=== PATIENT | female | born 1970 | race American Indian/Alaskan Native ===

== ENCOUNTER 2016-11-26 09:34 | Emergency (ER) | payer MEDICAID ==
[2016-11-26] MEDS ORDERED: TORADOL IM ONE (14:58)
[2016-11-26] MEDS ORDERED: ROBAXIN PO ONE ×2 (15:04→15:30)
--- NOTE | 2016-11-26 15:05 | Emergency Department Report ---
ED General Adult HPI - General Chief complaint: Back Pain/Injury Stated complaint: LEGS HURT Time Seen by Provider: 11/26/16 14:52 Source: patient Mode of arrival: Ambulatory Limitations: No Limitations - History of Present Illness Initial comments: 46-year-old female with no significant past medical history, patient presents with right flank pain, chest wall 1 week. She has been coughing and this has triggered her chronic right flank pain. Pain hurts with movement and taking a deep breath. -: Gradual, week(s) (1, problems is progressively getting worse) Location: chest (right flank pain posteriorly) Radiation: non-radiation Severity scale (0 -10): 7 Quality: aching Consistency: constant Improves with: none Worsens with: movement, other (taking a deep breath) Associated Symptoms: chest pain (right flank posteriorly), shortness of breath. denies: malaise, nausea/vomiting, rash, seizure - Related Data Previous Rx's Medication Instructions Recorded Last Taken Type Miscellaneous Medical Supply 1 each MC PRN #1 each 06/27/15 Unknown Rx [[place]] Naproxen [Naprosyn TAB] 500 mg PO BID #20 tablet 02/27/16 Unknown Rx Methocarbamol [Robaxin TAB] 1,500 mg PO Q8H #40 tablet 11/26/16 Unknown Rx traMADol [Ultram] 50 mg PO Q6HR PRN #16 tablet 11/26/16 Unknown Rx Allergies Allergy/AdvReac Type Severity Reaction Status Date / Time No Known Allergies Allergy Verified 11/26/16 15:01 ED Review of Systems ROS: Stated complaint: LEGS HURT Other details as noted in HPI Comment: All other systems reviewed and negative Eyes: denies: as per HPI, eye discharge, vision change ENT: denies: ear pain, dental pain, hearing loss Respiratory: cough, shortness of breath (with coughing) Cardiovascular: as per HPI, chest pain (right chest flank pain). denies: edema , syncope, paroxysmal nocturnal dyspnea Endocrine: no symptoms reported Gastrointestinal: denies: nausea, vomiting, diarrhea, constipation, hematemesis Genitourinary: denies: dysuria, frequency, hematuria Musculoskeletal: back pain (right chest flank pain). denies: joint swelling, arthralgia Skin: denies: rash, lesions, change in color, change in hair/nails Neurological: denies: weakness, numbness, paresthesias, confusion ED Past Medical Hx - Past Medical History Hx Hypertension: Yes Hx Diabetes: Yes Hx HIV: Yes Additional medical history: ear infection - Surgical History Hx Breast Surgery: Yes (reduction) - Social History Smoking Status: Never Smoker Substance Use Type: None - Medications Home Medications: Home Medications Medication Instructions Recorded Confirmed Last Taken Type Miscellaneous Medical Supply 1 each MC PRN #1 each 06/27/15 Unknown Rx [[place]] Naproxen [Naprosyn TAB] 500 mg PO BID #20 tablet 02/27/16 Unknown Rx Methocarbamol [Robaxin TAB] 1,500 mg PO Q8H #40 tablet 11/26/16 Unknown Rx traMADol [Ultram] 50 mg PO Q6HR PRN #16 tablet 11/26/16 Unknown Rx ED Physical Exam - General Limitations: No Limitations General appearance: alert, in distress (in mild to moderate distress), obese - Head Head exam: Present: atraumatic, normocephalic, normal inspection - Eye Eye exam: Present: normal appearance, PERRL, EOMI. Absent: scleral icterus, conjunctival injection, nystagmus - ENT ENT exam: Present: normal exam, normal orophraynx, mucous membranes moist - Neck Neck exam: Present: normal inspection, full ROM. Absent: tenderness, lymphadenopathy - Respiratory Respiratory exam: Present: normal lung sounds bilaterally, chest wall tenderness (right flank, posteriorly). Absent: decreased breath sounds, prolonged expiratory - Cardiovascular Cardiovascular Exam: Present: regular rate, normal rhythm, normal heart sounds - GI/Abdominal GI/Abdominal exam: Present: soft, distended (obese abdomen), normal bowel sounds. Absent: hyperactive bowel sounds, hypoactive bowel sounds - Extremities Exam Extremities exam: Present: normal inspection, full ROM, normal capillary refill. Absent: pedal edema, joint swelling - Back Exam Back exam: Present: normal inspection, tenderness (right chest flank tenderness) , CVA tenderness (R) - Neurological Exam Neurological exam: Present: alert, oriented X3, CN II-XII intact ED Course Vital Signs 11/26/16 10:28 Temperature 98 F Pulse Rate 73 Blood Pressure 148/93 O2 Sat by Pulse 100 Oximetry ED Medical Decision Making - Radiology Data Radiology results: image reviewed Critical Care Time: No Critical care attestation.: If time is entered above; I have spent that time in minutes in the direct care of this critically ill patient, excluding procedure time. ED Disposition Clinical Impression: Muscle strain of chest wall Disposition: DC-01 TO HOME OR SELFCARE Is pt being admited?: No Does the pt Need Aspirin: No Condition: Stable Instructions: Muscle Strain (ED) Additional Instructions: Cool compresses as tolerated to right flank, chest wall Prescriptions: Methocarbamol [Robaxin TAB] 1,500 mg PO Q8H #40 tablet traMADol [Ultram] 50 mg PO Q6HR PRN #16 tablet PRN Reason: Pain Referrals: PRIMARY CARE, [Primary Care Provider] - 3-5 Days Time of Disposition: 17:02
[2016-11-26 17:38] VITALS: BP 142/90
--- NOTE | 2016-11-27 07:52 | XRay Report ---
RIGHT RIBS: Right chest pain. Routine views of the rib cage demonstrate normal mineralization with no significant contour abnormalities, fractures or destructive lesions. PA view of the chest demonstrates no underlying cardiopulmonary abnormalities, fluid or pneumothorax. IMPRESSION: Normal right rib series.
== END 2016-11-26 17:36 | disposition home or self-care (01) ==
LOC: ED 09:34
DX: S29.011A Strain of muscle and tendon of front wall of thorax, initial encounter (principal); E11.9 Type 2 diabetes mellitus without complications; X58.XXXA Exposure to other specified factors, initial encounter; Y93.89 Activity, other specified; Y92.89 Other specified places as the place of occurrence of the external cause; Y99.8 Other external cause status
CPT/HCPCS: 71101; 96372; 99283; J1885

== ENCOUNTER 2017-10-23 11:52 | Emergency (ER) | payer MEDICARE ==
[2017-10-23] MEDS ORDERED: NACL 0.9% 1000 ML 1,000 ML IV ONE (13:44)
[2017-10-23] MEDS ORDERED: HumuLIN R IV ONE ×2 (13:45→15:14)
--- NOTE | 2017-10-23 13:48 | Emergency Department Report ---
ED General Adult HPI - General Chief complaint: Hyperglycemia Stated complaint: HBP Time Seen by Provider: 10/23/17 13:15 Source: patient Mode of arrival: Ambulatory Limitations: No Limitations - History of Present Illness Initial comments: Patient is 47-year-old female history of hypertension and diabetes. Patient brought to the ER via EMS after patient was found to have a high blood sugar of 470. Patient denied any symptoms. She stated that she's been compliant with her insulin but she is not compliant with her diet. Patient denied any headache , neck pain, chest pain, shortness of breath, abdominal pain, nausea, vomiting, weakness numbness or tingling sensation. - Related Data Previous Rx's Medication Instructions Recorded Last Taken Type Medical Supply, Miscellaneous 1 each MC PRN #1 each 06/27/15 Unknown Rx [[place]] Naproxen [Naprosyn TAB] 500 mg PO BID #20 tablet 02/27/16 Unknown Rx Methocarbamol [Robaxin TAB] 1,500 mg PO Q8H #40 tablet 11/26/16 Unknown Rx traMADol [Ultram] 50 mg PO Q6HR PRN #16 tablet 11/26/16 Unknown Rx Allergies Allergy/AdvReac Type Severity Reaction Status Date / Time No Known Allergies Allergy Verified 10/23/17 12:13 ED Review of Systems ROS: Stated complaint: HBP Other details as noted in HPI Comment: All other systems reviewed and negative Constitutional: denies: chills, fever Respiratory: denies: cough, orthopnea, shortness of breath, SOB with exertion, SOB at rest, wheezing Cardiovascular: denies: chest pain, palpitations Gastrointestinal: denies: abdominal pain, nausea, vomiting Neurological: denies: headache, weakness, numbness, paresthesias, confusion, abnormal gait ED Past Medical Hx - Past Medical History Hx Hypertension: Yes Hx Diabetes: Yes Hx Psychiatric Treatment: Yes (bipolar, schizophrenia) Hx HIV: Yes Additional medical history: ear infection - Surgical History Hx Breast Surgery: Yes (reduction) - Social History Smoking Status: Never Smoker Substance Use Type: None - Medications Home Medications: Home Medications Medication Instructions Recorded Confirmed Last Taken Type Medical Supply, Miscellaneous 1 each MC PRN #1 each 06/27/15 Unknown Rx [[place]] Naproxen [Naprosyn TAB] 500 mg PO BID #20 tablet 02/27/16 Unknown Rx Methocarbamol [Robaxin TAB] 1,500 mg PO Q8H #40 tablet 11/26/16 Unknown Rx traMADol [Ultram] 50 mg PO Q6HR PRN #16 tablet 11/26/16 Unknown Rx ED Physical Exam - General Limitations: No Limitations General appearance: alert, in no apparent distress - Head Head exam: Present: atraumatic, normocephalic, normal inspection - ENT ENT exam: Present: normal exam, normal orophraynx, mucous membranes moist, TM's normal bilaterally - Neck Neck exam: Present: normal inspection, full ROM. Absent: tenderness - Respiratory Respiratory exam: Present: normal lung sounds bilaterally. Absent: respiratory distress, wheezes, rales, rhonchi, stridor, chest wall tenderness, accessory muscle use, decreased breath sounds, prolonged expiratory - Cardiovascular Cardiovascular Exam: Present: regular rate, normal rhythm, normal heart sounds - GI/Abdominal GI/Abdominal exam: Present: soft, normal bowel sounds. Absent: distended, tenderness, guarding, rebound, rigid, organomegaly, mass, bruit, pulsatile mass - Extremities Exam Extremities exam: Present: normal inspection, full ROM, normal capillary refill - Back Exam Back exam: Present: normal inspection, full ROM. Absent: CVA tenderness (L) - Neurological Exam Neurological exam: Present: alert, oriented X3, CN II-XII intact, normal gait - Skin Skin exam: Present: warm, intact, normal color. Absent: cyanosis, diaphoretic, erythema, urticaria, petechiae ED Course Vital Signs 10/23/17 12:13 Temperature 97.8 F Pulse Rate 107 H Respiratory 20 Rate Blood Pressure 158/94 O2 Sat by Pulse 98 Oximetry ED Medical Decision Making - Lab Data Result diagrams: 10/23/17 Unknown 10/23/17 14:14 - Medical Decision Making Patient is completely asymptomatic. Blood sugar now is 299. I counseled the patient about diabetic diet and the need to be compliant with her medication. I also advised her to follow up with her primary care physician and to return to the ER if she develop any new symptoms. Critical care attestation.: If time is entered above; I have spent that time in minutes in the direct care of this critically ill patient, excluding procedure time. ED Disposition Clinical Impression: Hyperglycemia due to type 2 diabetes mellitus Disposition: TO HOME OR SELFCARE Is pt being admited?: No Condition: Stable Instructions: Diabetes Mellitus Type 2 in Adults (ED), Diabetic Hyperglycemia ( ED) Referrals: PRIMARY CARE, [Primary Care Provider] - 3-5 Days
[2017-10-23 14:15] LABS: Basophils % (Auto) 0.6 % (0.0-1.8); Eosinophils % (Auto) 0.3 % (0.0-4.3); Hematocrit 42.1 % (30.3-42.9); Hemoglobin 14.2 gm/dl (10.1-14.3); Lymphocytes # (Auto) 1.2 K/mm3 (1.2-5.4); Lymphocytes % (Auto) 18.2 % (13.4-35.0); Mean Corpuscular HGB Conc 34 % (30-34); Mean Corpuscular Hemoglobin 31 pg (28-32); Mean Corpuscular Volume 92 fl (79-97); Monocytes # (Auto) 0.6 K/mm3 (0.0-0.8); Monocytes % (Auto) 8.8 % (0.0-7.3); Platelet Count 203 K/mm3 (140-440); Red Blood Count 4.58 M/mm3 (3.65-5.03); Red Cell Distribution Width 12.9 % (13.2-15.2)
[2017-10-23 14:23] LABS: Alanine Aminotransferase 13 units/L (7-56); Albumin 4.3 g/dL (3.9-5); BUN/Creatinine Ratio 23; Blood Urea Nitrogen 16 mg/dL (7-17); Calcium 9.8 mg/dL (8.4-10.2); Hemolysis Index 15
[2017-10-23 14:47] LABS: Bilirubin,Urine NEG (Negative); Blood,Urine NEG (Negative); Color,Urine Straw (Yellow); Mucus,Urine FEW /HPF; Protein,Urine <15 mg/dL mg/dL (Negative); Urobilinogen,Urine < 2.0 mg/dL (<2.0)
[2017-10-23 14:51] LABS: WBC,Urine < 1.0 /HPF (0.0-6.0)
[2017-10-23 16:54] VITALS: BP 148/90
== END 2017-10-23 16:54 | disposition home or self-care (01) ==
LOC: ED 11:52
DX: E11.65 Type 2 diabetes mellitus with hyperglycemia (principal); I10 Essential (primary) hypertension; F31.9 Bipolar disorder, unspecified; F20.9 Schizophrenia, unspecified; Z21 Asymptomatic human immunodeficiency virus [HIV] infection status
CPT/HCPCS: 36415; 80053; 81001; 82962; 85025; 96361; 96374; 96376; 99283; J7030; J1815